=== PATIENT | male | born 1970 | race Caucasian/White ===

== ENCOUNTER 2025-03-28 14:52 | Outpatient (CLI) | payer BC, SELFPAY | END 2025-03-28 14:53 | disposition home or self-care (01) | LOC: WOUND 14:53 | PROVIDERS: PCP Family Medicine; Visit Provider Surgery | DX: S51.802A Unspecified open wound of left forearm, initial encounter (principal); L98.492 Non-pressure chronic ulcer of skin of other sites with fat layer exposed; T78.2XXS Anaphylactic shock, unspecified, sequela | CPT/HCPCS: 97597; G0463 ==

== ENCOUNTER 2025-04-11 15:36 | Outpatient (CLI) | payer BC, SELFPAY | END 2025-04-11 15:37 | disposition home or self-care (01) | LOC: WOUND 15:36 | PROVIDERS: PCP Family Medicine; Visit Provider Physician Assistant | DX: S51.802A Unspecified open wound of left forearm, initial encounter (principal); L98.492 Non-pressure chronic ulcer of skin of other sites with fat layer exposed | CPT/HCPCS: 97597 ==

== ENCOUNTER 2025-05-14 08:22 | Outpatient (CLI) | payer BC, SELFPAY | END 2025-05-14 08:23 | disposition home or self-care (01) | LOC: NFLDREF 05-15 08:25 | PROVIDERS: PCP Family Medicine; Referring Provider Family Medicine; Visit Provider Family Medicine | DX: E78.5 Hyperlipidemia, unspecified (principal); I10 Essential (primary) hypertension; Z12.5 Encounter for screening for malignant neoplasm of prostate | CPT/HCPCS: 80053; 80061; G0103 ==

== ENCOUNTER 2025-06-01 11:00 | Outpatient (CLI) | payer BC, SELFPAY | END 2025-06-01 11:01 | disposition home or self-care (01) | LOC: NFLDREF 06-04 18:59 | PROVIDERS: PCP Family Medicine; Referring Provider Family Medicine; Visit Provider Family Medicine | DX: I10 Essential (primary) hypertension (principal); Z12.5 Encounter for screening for malignant neoplasm of prostate | CPT/HCPCS: 80048 ==

== ENCOUNTER 2025-06-11 11:25 | Outpatient (CLI) | payer BC, SELFPAY ==
--- NOTE | 2025-06-11 12:38 | P.ANES_ITS ---
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
--- NOTE | 2025-06-11 12:38 | W.ANESCHARGE ---
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
--- NOTE | 2025-06-11 12:46 | P.ANES_ITS ---
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
--- NOTE | 2025-06-11 12:46 | W.ANESCHARGE ---
Anesthesia Charges Start Date/Time Anesthesia Start Date: 06/11/25 Anesthesia Start Time: 12:10 Stop Date/Time Anesthesia Stop Date: 06/11/25 Anesthesia Stop Time: 12:39 Coding CPT Codes CPT Codes: ANES LWR INTST SCR COLSC - [id number] ([id number]) P3 - PATIENT W/SEVERE SYS DISEASE, QK - STROKE PROGRAM COORDINATOR 2-4 CNCRNT ANES PROC
== END 2025-06-11 11:26 | disposition home or self-care (01) ==
LOC: OP CLINIC 11:25
PROVIDERS: PCP Family Medicine; Visit Provider Internal Medicine
DX: Z12.11 Encounter for screening for malignant neoplasm of colon (principal); Z86.0100 Personal history of colon polyps, unspecified
CPT/HCPCS: 00812; 45378; J2704